=== PATIENT | female | born 2000 | race Caucasian/White ===

== ENCOUNTER 2019-09-15 21:43 | Emergency (ER) | payer OTHER ==
[~2019-09-15] VITALS: Ht 165.1 cm; Wt 59.0 kg
== END 2019-09-16 00:21 | disposition home or self-care (01) ==
LOC: ED 21:43
DX: R10.31 Right lower quadrant pain (principal); R10.2 Pelvic and perineal pain; R11.0 Nausea
CPT/HCPCS: 76705; 76830; 76856; 80053; 81001; 83690; 83735; 84703; 85025; 99284-25

== ENCOUNTER 2019-10-10 19:16 | Emergency (ER) | payer OTHER ==
[~2019-10-10] VITALS: Ht 165.1 cm; Wt 59.0 kg
--- OUTSIDE RECORDS SUMMARY | 2019-10-10 19:20 | XMS ---
PreManage Notification: RADHA HAMMOND [employer] Events No recent Security Events currently on file CRITERIA MET - [facility] - 2 Visits in 30 Days CARE PROVIDERS ERNIE HOUSTON [facility] Current PHONE: [phone] Amilcar has no Care Guidelines for this patient. ETresa VISIT COUNT (12 MO.) 2 [facility] TOTAL 2 NOTE: Visits indicate total known visits. ED/UCC VISIT TRACKING (12 MO.) 10/10/2019 19:17 [facility] TYPE: Emergency COMPLAINT: - BACK PAIN 09/15/2019 21:44 [facility] TYPE: Emergency COMPLAINT: - ABD PAIN DIAGNOSES: - Right lower quadrant pain - Pelvic and perineal pain - Nausea INPATIENT VISIT TRACKING (12 MO.) 02/14/2019 11:25 [facility] [place] TYPE: [facility] Services DIAGNOSES: - Management of Labor and Delivery [email or web address]
[2019-10-10] MEDS ORDERED: CYCLOBENZAPRINE10 MG PO (20:30)
[2019-10-10] MEDS ORDERED: DICLOFENAC SODI75 MG PO (20:30)
== END 2019-10-10 20:39 | disposition home or self-care (01) ==
LOC: ED 19:16
DX: M54.5 Low back pain (principal)
CPT/HCPCS: 99283

== ENCOUNTER 2019-11-11 08:45 | Emergency (ER) | payer OTHER ==
[~2019-11-11] VITALS: Ht 165.1 cm; Wt 59.0 kg
[~2019-11-11 08:45] MED LIST: CYCLOBENZAPRINE10 MG PO; DICLOFENAC SODI75 MG PO
--- NOTE | 2019-11-11 13:15 | EKG ---
[facility] [address] [place], [place] [address] Signed Normal sinus rhythm Normal ECG No previous ECGs available Confirmed by CLARENCE FLYNN MD ([id number]) on 11/11/2019 1:14:51 PM Electronically Signed By: CLARENCE FLYNN MD 11/11/19 1315 PATIENT NAME: RADHA HAMMOND NATA Electrocardiogram DATE OF : 89 PHYSICIAN: CLARENCE FLYNN MD REPORT #: [id number] REPORT IS CONFIDENTIAL AND NOT TO BE RELEASED WITHOUT AUTHORIZATION
== END 2019-11-11 11:13 | disposition home or self-care (01) ==
LOC: ED 08:45
DX: R55 Syncope and collapse (principal)
CPT/HCPCS: 80053; 83735; 84484; 84703; 85025; 93005; 93010; 99284-25

== ENCOUNTER 2020-06-19 15:52 | Emergency (ER) | payer OTHER ==
[~2020-06-19] VITALS: Ht 165.1 cm; Wt 55.8 kg
== END 2020-06-19 18:00 | disposition home or self-care (01) ==
LOC: ED 15:52
DX: O26.851 Spotting complicating pregnancy, first trimester (principal); Z3A.01 Less than 8 weeks gestation of pregnancy
CPT/HCPCS: 76801; 76817; 80053; 84702; 85025; 86900; 86901; 99284-25

== ENCOUNTER 2023-02-26 17:20 | Inpatient (IN) | payer OTHER ==
[~2023-02-26] VITALS: Ht 172.7 cm; Wt 73.0 kg
[2023-02-26 19:27] LABS: HEMATOCRIT 28.7 % (35.0-50.0); HEMOGLOBIN 9.3 g/dL (12.0-18.0); MCH 24.6 (27-36); MCHC 32.5 g/dl (30-36); MCV 75.6 fl (81-99); RBC 3.79 M/ul (4.3-5.7); RDW 14.7 (10.5-15.0)
[2023-02-26 19:37] LABS: AMPHETAMINES, URINE NEGATIVE (NEGATIVE); BARBITURATES, URINE NEGATIVE (NEGATIVE); BENZODIAZEPINE, URINE NEGATIVE (NEGATIVE); BUPRENORPHINE, URINE NEGATIVE (NEGATIVE); CANNABINOID, URINE NEGATIVE (NEGATIVE); COCAINE, URINE NEGATIVE (NEGATIVE); ECSTASY, URINE NEGATIVE (NEGATIVE); FENTANYL, URINE NEGATIVE (NEGATIVE); METHADONE, URINE NEGATIVE (NEGATIVE); OPIATES, URINE NEGATIVE (NEGATIVE); OXYCODONE, URINE NEGATIVE (NEGATIVE); PHENCYCLIDINE, URINE NEGATIVE (NEGATIVE)
[2023-02-26 20:57] LABS: ABO O; ANTIBODY SCREEN POSITIVE; RH NEGATIVE
[2023-02-26 20:59] LABS: ANTIBODY IDENTIFICATION ANTI-D
[2023-02-26 22:41] VITALS: BP 102/59
[2023-02-27 05:25] LABS: HEMOGLOBIN 8.8 g/dL (12.0-18.0); MCH 24.6 (27-36); MCHC 32.7 g/dl (30-36); MCV 75.2 fl (81-99); RBC 3.58 M/ul (4.3-5.7); RDW 14.4 (10.5-15.0)
[2023-02-27 06:38] LABS: ABO O; RH NEGATIVE
[2023-02-27 06:39] LABS: ANTIBODY SCREEN POSITIVE
[2023-02-27 06:42] LABS: ANTIBODY IDENTIFICATION ANTI-D
--- NOTE | 2023-02-27 08:37 | PR ---
[facility] [address] [place], [place] [address] Signed PP Progress Notes Datetime Report Generated by [employer]: 02/27/2023 08:37 SUBJECTIVE: [id number] Pain: Within Normal Limits Vital Signs: [id number] Vital Signs: Reviewed; Within Normal Limits Cardiovascular: Not Done Respiratory: Not Done Abdomen/Uterus: Abnormal Lochia: Normal Vulva/Perineum: Not Done Breasts: Not Done CVA Tenderness: Not Done Extremities: Normal Incision: Not Applicable Progress: Normal Exam Comments: Fundus firm, NT @ U-2. H/H 8.8/27, WBC 8.9, plat 214k IMPRESSION/PLAN/PROCEDURES: [id number] Impression: Normal Progression Plan: Continue Present Management Procedures: None Progress Notes: Doing well. Will continue present management with probable discharge in am. Signing Physician: Yolanda Gutierrez MD Copies: ~ *Electronically Signed* 02/27/23 0837 YOLANDA GUTIERREZ MD PATIENT NAME: ARDHA HAMMOND NATA PROGRESS NOTE DATE OF : [birth year] PHYSICIAN: YOLANDA GUTIERREZ MD RPT #: [id number] REPORT IS CONFIDENTIAL AND NOT TO BE RELEASED WITHOUT AUTHORIZATION
--- NOTE | 2023-02-28 07:38 | PR ---
[facility] [address] [place], [place] [address] Signed PP Progress Notes Datetime Report Generated by CPN: 02/28/2023 07:38 SUBJECTIVE: [id number] Pain: Within Normal Limits Vital Signs: [id number] Vital Signs: Reviewed; Within Normal Limits Cardiovascular: Not Done Respiratory: Not Done Abdomen/Uterus: Abnormal Lochia: Normal Vulva/Perineum: Not Done Breasts: Not Done CVA Tenderness: Not Done Extremities: Normal Incision: Not Applicable Progress: Normal Exam Comments: Fundus firm, NT @ U-2. IMPRESSION/PLAN/PROCEDURES: [id number] Impression: Normal Progression Plan: Discharge Procedures: None Progress Notes: Doing well. She is ready for D/C. Signing Physician: Yolanda Gutierrez MD Copies: ~ *Electronically Signed* 02/28/23 0738 YOLANDA GUTIERREZ MD PATIENT NAME: RADHA HAMMOND NATA PROGRESS NOTE DATE OF : 89 PHYSICIAN: YOLANDA GUTIERREZ MD RPT #: [id number] REPORT IS CONFIDENTIAL AND NOT TO BE RELEASED WITHOUT AUTHORIZATION
== END 2023-02-28 11:20 | disposition home or self-care (01) | DRG 807 ==
LOC: FBCO 17:20 → FBC 18:53
PROVIDERS: Obstetrics & Gynecology; ADMIT Obstetrics & Gynecology; ATTEND Obstetrics & Gynecology
PROC: 10E0XZZ Delivery of Products of Conception, External Approach (ICD-10-PCS; principal; 2023-02-26)
PROC: 10907ZC Drainage of Amniotic Fluid, Therapeutic from Products of Conception, Via Natural or Artificial Opening (ICD-10-PCS; 2023-02-26)
DX: O80 Encounter for full-term uncomplicated delivery (principal); Z37.0 Single live birth; Z3A.37 37 weeks gestation of pregnancy
CPT/HCPCS: 36415; 59025; 80307; 83030; 85027; 86850; 86870; 86900; 86901; A9270; G0463; J2590; J2790